=== PATIENT | female | born 1980 | race Caucasian/White ===

== ENCOUNTER → 2023-10-27 11:03 | Outpatient (REF) | payer OTHER, SELFPAY | LOC: HWWDC 11:03 | PROVIDERS: ATTENDING PHYSICIAN Obstetrics & Gynecology; FAMILY PHYSICIAN Student in an Organized Health Care Education/Training Program | DX: Z12.31 Encounter for screening mammogram for malignant neoplasm of breast (principal) | CPT/HCPCS: 77063; 77067 ==

== ENCOUNTER 2024-06-24 08:43 | Emergency (ER) | payer BC, SELFPAY ==
[2024-06-24 08:44] VITALS: BP 149/102
[2024-06-24 09:03] LABS: % Basophils 0.5 % (0-2); % Eosinophils 1.2 % (0-6); % Immature Granulocytes 0.2 % (0-0.5); % Lymphocytes 27.5 % (20.5-51.1); % Monocytes 6.9 % (1.7-9.3); % Neutrophils 63.7 % (42.2-75.2); Absolute Eosinophils 0.1 10^3/uL (0-0.7); Absolute Lymphocytes 1.6 10^3/uL (1.2-3.4); Absolute Monocytes 0.4 10^3/uL (0.1-0.6); Absolute Neutrophils 3.6 10^3/uL (1.4-6.5); Hematocrit 39.8 % (37.0-47.0); Mean Corp Hgb Conc. 35.2 g/dL (33.0-37.0); Mean Corpuscular Hgb 29.5 pg (27.0-31.0); Mean Platelet Volume 10.6 fL (7.4-10.4); Nucleated Red Blood Cells % 0 %; Platelet Count 193 10^3/uL (130-400); Red Blood Cell Count 4.74 10^6/uL (4.20-5.40); White Blood Cell Count 5.6 10^3/uL (4.8-10.8)
[2024-06-24 09:28] LABS: Troponin I < 0.012 ng/ml
[2024-06-24 09:30] LABS: ALT (SGPT) 11 U/L (0-35); AST (SGOT) 18 U/L (14-36); Albumin 4.5 g/dl (3.5-5.0); Alkaline Phosphatase 38 U/L (38-126); Blood Urea Nitrogen 10 mg/dl (7-17); Calcium 9.4 mg/dl (8.4-10.2); Carbon Dioxide 28 mmol/L (22-30); Chloride 104 mmol/L (98-107); Glucose 96 mg/dl (70-99); HCG, Serum Qualitative Screen Negative; Potassium 4.3 mmol/L (3.5-5.1); Sodium 141 mmol/L (135-145); Total Bilirubin 0.9 mg/dl (0.2-1.3); Total Protein 7.3 g/dl (6.3-8.2); eGFR > 60.00
--- NOTE | 2024-06-24 10:03 | ED.GENMED ---
History of Present Illness
General
Chief Complaint: Chest Pain
Time Seen by Provider: 06/24/24 10:03
History of Present Illness
History of Present Illness:
TIME OF INITIAL ENCOUNTER: 10:05 AM
HPI: Over the past week or so, the patient's been having some vague chest discomfort. This chest discomfort is not exertional in nature. Today her symptoms dramatically worsened while driving and is described as a pressure sensation and she broke
out into a sweat. She does not have any shortness of breath. She states that she knows what anxiety feels like and this did not feel like anxiety. She had no radiation of pain. She also reports some changes in her blood pressure. She is now on
a GLP-1 and lost about 15 pounds. She had been on losartan 100 mg and given low blood pressure readings, she decreased to 50 mg. She was also placed on metoprolol when she had higher blood pressure readings last year and also reports history of
migraines.
EXAM:
GENERAL: Well appearing in no distress
HEENT: Moist oral mucosa
CARDIOVASCULAR: No murmurs, normal heart rate, regular rhythm, No significant chest wall tenderness
PULMONARY: No respiratory distress, breath sounds are clear and equal
ABDOMEN: Soft with no peritoneal signs, no tenderness
NEUROLOGIC: Excellent strength all extremities, no coordination deficits
PSYCHIATRIC: Appropriate mental status, normal insight and judgement
EXTREMITIES: Nontender, no edema, moves all extremities equally
SKIN: No rash, no lesions
NUMBER AND COMPLEXITY OF PROBLEMS ADDRESSED AT THE ENCOUNTER
� Chronic conditions affecting care: Migraines, anxiety, high blood pressure
� Acute Exacerbation and/or Progression of Chronic Illness: This is an acute problem
� Differential Diagnosis includes: Chest wall pain, anxiety, ACS very unlikely, GERD
AMOUNT AND/OR COMPLEXITY OF DATA TO BE REVIEWED AND ANALYZED
� I performed an independent evaluation of and my interpretation is:
EKG: Sinus 66, normal axis, no acute ST abnormality
CT:
X-rays:
Laboratory Studies: CBC normal, chemistries unremarkable, initial troponin less than 0.012, hCG negative
Other:
� Review of other/old records: No old records available for review
� Clinical information was obtained by an independent historian: I spoke to the mother at bedside
� Prescriptions/Medications Considered but not given: Offered/considered analgesia for the patient declined
� Further testing considered but not performed: No clear indication for chest x-ray as the lungs are clear and she has no symptoms consistent with pneumothorax or pneumonia
RISK OF COMPLICATIONS AND/OR MORBIDITY OR MORTALITY OF PATIENT MANAGEMENT
� Social determinants of health affecting care: Lives at home
� Discussion with other providers:
� Escalation of care including admission/observation vs risk of discharge considered: The patient is well-appearing. Initial EKG and troponin are normal. As symptoms recently started, will obtain repeat troponin. She does not
have a electronic component processor.
ANY OTHER UPDATES:
Repeat EKG was obtained at 11:33 AM: No change from initial, sinus rhythm with no ST abnormality with rate of 60.
12:35 PM: I reassessed patient. The patient appears very comfortable. 2 sets of troponins and 2 EKGs unremarkable. I have given patient contact information for Dr. BIBI Boyle and used chest pain hotline discharge paperwork.
Phy Exam
Physical Exam
Physical Exam:
See HPI
Scores
Heart Score for Chest Pain Patients
STEMI patient?: Not applicable
Course
Orders/Labs/Results
Orders:
Orders
06/24/24 08:48
ECG [Electrocardiogram (*1)] Urgent
Reason for Study: Chest Pain
EKG- Treatment ONCE
06/24/24 08:54
Test Result ONCE
06/24/24 08:57
Complete Blood Count/With Diff Urgent
Comprehensive Metabolic Panel Urgent
HCG, Serum Qualitative Screen Urgent
Troponin I Urgent
06/24/24 10:11
EKG- Treatment ONCE
06/24/24 11:15
Electrocardiogram (*1) Urgent
Reason for Study: Chest Pain
06/24/24 11:47
Troponin I Urgent
Abnormal Lab Results
06/24/24
08:57
MPV 10.6 H fL
(7.4-10.4)
06/24/24 08:57
06/24/24 08:57
Vital Signs
Initial and Last Documented VS:
Initial Vital Signs
Temp Pulse Resp BP Pulse Ox
36.6 C 75 18 149/102 98
06/24/24 08:44 06/24/24 08:44 06/24/24 08:44 06/24/24 08:44 06/24/24 08:44
Last Documented Vital Signs
Temp Pulse Resp BP Pulse Ox
36.6 C 75 15 120/81 100
06/24/24 08:44 06/24/24 11:55 06/24/24 11:48 06/24/24 11:48 06/24/24 11:30
*Critical Care Note
Total Time (30-74mins, 75-104mins- exclusive of procedures): Not Applicable
ED Attending Note
-
Portions of this chart may have been created with voice recognition software.� Occasional wrong word or��sound alike� substitutions may have occurred due to the inherent limitations of voice recognition software.
Discharge Plan
Departure
Patient Disposition: Home (Routine Discharge)
Date of Disposition: 06/24/24
Time of Disposition: 12:35
Patient with high blood pressure during this ER visit?: Yes
Discharge Problem:
Chest pain
Instructions: Chest Pain [facility] Follow Up, BLOOD PRESSURE
Referrals:
Landen Aguayo MD [Family Provider] -
Michael Boyle MD [Active] - Follow up in 2-3 days
Activity Restrictions/Additional Instructions:
I have given you the contact information for a local electronic component processor to follow-up with, Dr. BIBI Boyle. The cause of your symptoms is unclear. Your basic blood work including 2 cardiac blood tests were all normal. EKGs are normal. Consider trying
Motrin and pain could be related to a musculoskeletal etiology. You could also try a 2-week course of [id number] omeprazole in case the symptoms could be related to stomach acid. Return here if worse or other concerns.
Interventions
Interventions:
*Risk Screen - Suicide Last Done: 06/24/24 08:44
*General Assessment Last Done: 06/24/24 08:44
*Neglect/Abuse Screening Last Done: 06/24/24 10:11
*ED- Fall Risk Assessment Last Done: 06/24/24 10:11
*ED COVID-19 Vaccine History Last Done: 06/24/24 10:11
ED- Cardiac Assessment Last Done: 06/24/24 10:11
Discharge Date and Time
Print Language: WELSH
[2024-06-24 10:09] VITALS: BMI 25.8
[2024-06-24 11:48] VITALS: BP 120/81
[2024-06-24 12:00] VITALS: BP 121/89
[2024-06-24 12:18] LABS: Troponin I < 0.012 ng/ml
[2024-06-24 13:00] VITALS: BP 106/69
== END 2024-06-24 13:35 | disposition home or self-care (01) ==
LOC: EMR 08:43
PROVIDERS: EMERGENCY PHYSICIAN Emergency Medicine; FAMILY PHYSICIAN Internal Medicine
DX: R07.89 Other chest pain (principal); F41.9 Anxiety disorder, unspecified
CPT/HCPCS: 99283; 80053; 84484; 84703; 85025; 93005

== ENCOUNTER → 2024-08-30 13:02 | Outpatient (REF) | payer BC, SELFPAY | LOC: RCS 13:02 | PROVIDERS: ATTENDING PHYSICIAN Internal Medicine Cardiovascular Disease; FAMILY PHYSICIAN Internal Medicine | DX: R07.89 Other chest pain (principal); I10 Essential (primary) hypertension | CPT/HCPCS: 93306 ==

== ENCOUNTER → 2024-09-06 12:43 | Outpatient (REF) | payer BC, SELFPAY | LOC: RCS 12:43 | PROVIDERS: ATTENDING PHYSICIAN Internal Medicine Cardiovascular Disease; FAMILY PHYSICIAN Internal Medicine | DX: R07.89 Other chest pain (principal) | CPT/HCPCS: 93017; 93350 ==

== ENCOUNTER → 2024-12-28 12:36 | Outpatient (REF) | payer BC, SELFPAY | LOC: DHSLP 12:36 | PROVIDERS: ATTENDING PHYSICIAN Internal Medicine | DX: G47.30 Sleep apnea, unspecified (principal); R06.83 Snoring | CPT/HCPCS: 95800 ==